=== PATIENT | female | born 1950 | race Caucasian/White ===

== ENCOUNTER 2018-09-24 12:22 | Inpatient (IN) | payer MEDICARE, OTHER ==
[~2018-09-24] VITALS: Ht 157.5 cm; Wt 60.3 kg
--- NOTE | 2018-09-24 12:50 | NUR ---
PT ALERT WITH ORIENTATION X 4 BROUGHT IN BY PARAMEDICS FOR NEAR SYNCOPY PT HAS 18 G PIV IN RIGHT AC FROM FIELD FLUSHED WELL WILL CONTINUE TO MONITOR
[2018-09-24] MEDS ORDERED: IV NS 0.9% 1,000 ML BAG IV ONE (13:00)
[2018-09-24 13:05] LABS: BASOPHILS # (AUTO) 0.1 /CMM (0.0-0.2); BASOPHILS % (AUTO) 0.9 % (0.0-2.0); EOSINOPHILS % (AUTO) 0.9 % (0.0-6.0); HEMATOCRIT 45 % (33-45); HEMOGLOBIN 14.9 g/dL (11.5-14.8); LYMPHOCYTES # (AUTO) 4.1 /CMM (0.8-4.8); LYMPHOCYTES % (AUTO) 41.7 % (20.0-44.0); MEAN CORPUSCULAR HGB CONC 33 g/dl (31.0-36.0); MEAN CORPUSCULAR VOLUME 91 fL (82-100); MONOCYTES # (AUTO) 0.8 /CMM (0.1-1.30); MONOCYTES % (AUTO) 7.7 % (2.0-12.0); NEUTROPHILS # (AUTO) 4.8 /CMM (1.8-8.9); NEUTROPHILS % (AUTO) 48.8 % (43.0-81.0); PLATELET COUNT (AUTO) 426 /CMM (150-450); WHITE BLOOD COUNT (AUTO) 9.8 K/uL (4.3-11.0)
[2018-09-24] MEDS ORDERED: OMEP20CA10 PO (13:11)
[2018-09-24] MEDS ORDERED: LINA145C PO (13:11)
[2018-09-24] MEDS ORDERED: GABA-534 PO (13:11)
[2018-09-24] MEDS ORDERED: ZOLM5TAB10 PO (13:11)
[2018-09-24] MEDS ORDERED: TETR12.52 PO (13:11)
[2018-09-24 13:19] LABS: CALCIUM, SERUM 8.7 mg/dL (8.5-10.1); CARBON DIOXIDE 28 mmol/L (21-32); CHLORIDE 105 mmol/L (98-107); CREATININE 0.7 mg/dL (0.6-1.3); GLUCOSE 111 mg/dL (74-106); SODIUM SERUM 141 mmol/L (136-145); UREA NITROGEN, BLOOD 16 mg/dL (7-18)
--- NOTE | 2018-09-24 14:56 | NUR ---
PT IS ASSIGNED TO [facility]#: [id number], DX: SYNCOPE, AND ACCEPTING: JEIMY HERNANDEZ NP.
--- NOTE | 2018-09-24 15:02 | NUR ---
UPDATE: ROOM CHANGE PT IS ASSIGNED TO TELE RM#: [id number]
[2018-09-24 16:00] VITALS: BP 157/86
--- NOTE | 2018-09-24 16:00 | NUR ---
RECEIVED PATIENT FROM ER VIA [facility]. PATIENT AMBULATORY, WALKED FROM [facility] TO THE BED WITH STANDBY ASSIST. A/OX4, ABLE TO MAKE NEEDS KNOWN. NO ACUTE DISTRESS, NO SOB. DENIED PAIN OR DISCOMFORT. TOLERATING ROOM AIR. IV ACCESS INTACT AND PATENT. SKIN ASSESSMENT DONE, PHOTOS TAKEN. ALL BELONGINGS CHECKED, FORM SIGNED. PLACED ON TELEMONITORING SR HR 96. NOTIFIED JEIMY HERNANDEZ NP FOR ADMITTING ORDERS. KEPT PATIENT SAFE AND COMFORTABLE. BED IN LOW/LOCKED POSITION, SIDERAILS UPX2, CALL LIGHT IN REACH, ORIENT PATIENT TO THE ROOM. WILL MONIOTR ACCORDINGLY.
[2018-09-24 17:00] VITALS: BP 157/86
--- NOTE | 2018-09-24 18:38 | NUR ---
RN CLOSING NOTES PATIENT IN STABLE CONDITION. ALL NEEDS ATTENDED AND PROVIDED. STILL WAITING FOR ADMITTING ORDERS FROM MD. KEPT PATIENT SAFE AND COMFORTABLE. BED IN LOW/LOCKED POSITION, SIDERAILS UPX2, SEMIFOWLERS, CALL LIGHT IN REACH. WILL ENDORSED TO NIGHT RN FOR JESU.
--- NOTE | 2018-09-24 19:30 | NUR ---
TELERN FULLY AWAKE, FAMILY AT BEDSIDE. DENIES ANY DISCOMFORTS OF THIS TIME. PENDING ADMITTING ORDERS. TO CONTINUE.
--- NOTE | 2018-09-24 19:53 | NUR ---
TELERClary HERNANDEZ AT BEDSIDE. TO CONTINUE.
[2018-09-24 20:00] VITALS: BP 157/85
[2018-09-24] MEDS ORDERED: Z GUARD REMEDY 2 OZ OINT TP PRN (20:00)
[2018-09-24] MEDS ORDERED: MAGNESIUM HYDROXIDE 30 ML UDC PO PRN (20:00)
[2018-09-24] MEDS ORDERED: MAG HYDROX/AL HYDROX/SIMETH 30 ML UDC PO PRN (20:00)
[2018-09-24] MEDS ORDERED: ACETAMINOPHEN 325 MG TABLET PO PRN (20:00)
--- NOTE | 2018-09-24 20:45 | NUR ---
TELERN VERBALIZES HEADACHE , NORCO 1 TAB PO ADMINISTERED.. ASSISTED TO RESTROOM VOIDED FREELY. BACK TO BED. REMINDED TO CALL STAFF FOR ANY ASSISTANCE OR FURTHER DISCOMFORT, SAFETY PRECAUTIONS EMPHASIZED.
[2018-09-24] MEDS: HYDROCODONE/APAP 5/325MG 1 EACH TABLET PO PRN (20:46)
[2018-09-25] VITALS: BP 130/70
[2018-09-25] MEDS: ZOLPIDEM TARTRATE 5 MG TABLET PO PRN ×2 (00:06→21:30)
[2018-09-25] MEDS: HYDROCODONE/APAP 5/325MG 1 EACH TABLET PO PRN ×3 (01:17→09:34)
--- NOTE | 2018-09-25 01:18 | NUR ---
TELERN STATED AMBIEN DID NOT HELP, SLEEPING ON/OFF. HEADACHE THIS TIME NORCO 1 TAB PO GIVEN.
[2018-09-25 04:00] VITALS: BP 145/85
--- NOTE | 2018-09-25 05:20 | NUR ---
norco given as ordered per pt's request for c/o h/a. will cont to monitor,
--- NOTE | 2018-09-25 07:00 | NUR ---
TELERN ALL NEEDS ATTENDED, CONTINUED MONITORING
[2018-09-25 07:20] LABS: BASOPHILS # (AUTO) 0.1 /CMM (0.0-0.2); BASOPHILS % (AUTO) 1.1 % (0.0-2.0); EOSINOPHILS % (AUTO) 1.7 % (0.0-6.0); HEMATOCRIT 44 % (33-45); HEMOGLOBIN 14.7 g/dL (11.5-14.8); LYMPHOCYTES # (AUTO) 2.9 /CMM (0.8-4.8); LYMPHOCYTES % (AUTO) 28.8 % (20.0-44.0); MEAN CORPUSCULAR HGB CONC 33 g/dl (31.0-36.0); MEAN CORPUSCULAR VOLUME 91 fL (82-100); MONOCYTES # (AUTO) 0.8 /CMM (0.1-1.30); MONOCYTES % (AUTO) 7.8 % (2.0-12.0); NEUTROPHILS # (AUTO) 6.2 /CMM (1.8-8.9); NEUTROPHILS % (AUTO) 60.6 % (43.0-81.0); PLATELET COUNT (AUTO) 452 /CMM (150-450); RED BLOOD CELL COUNT(AUTO) 4.87 MIL/uL (4.0-5.2); WHITE BLOOD COUNT (AUTO) 10.2 K/uL (4.3-11.0)
[2018-09-25 07:30] LABS: CREATININE 0.7 mg/dL (0.6-1.3); MAGNESIUM 1.8 mg/dL (1.8-2.4); PHOSPHORUS 3.9 mg/dL (2.5-4.9)
[2018-09-25] MEDS: ONDANSETRON HCL/PF 4 MG/2 ML VIAL IVP PRN ×3 (07:43→21:30)
[2018-09-25] MEDS: PANTOPRAZOLE 40 MG TABLET.DR PO SCH (07:43)
[2018-09-25 08:00] VITALS: BP 155/92
--- NOTE | 2018-09-25 08:00 | NUR ---
RN NOTES PATIENT IN BED RESTING ALERT, ORIENTED X3 NO SOB OR ACUTE DISTRESS NOTED. PATIENT COMPLAINS OF NAUSEA. ZOFRAN GIVEN. PATIENT WITH PERIPHERAL IV INTACT PATENT. BED IN LOW LOCKED POSITION. CALL LIGHT WITHIN REACH. WILL CONTINUE TO MONITOR.
[2018-09-25] MEDS: GABAPENTIN 300 MG CAPSULE PO SCH ×3 (08:54→16:30)
[2018-09-25] MEDS ORDERED: TETRABENAZINE 12.5 MG PO SCH (09:00)
[2018-09-25 10:25] LABS: THYROID STIMULATING HORMONE 1.811 uIU/mL (0.358-3.74)
[2018-09-25] MEDS: IV NS 0.9% 1,000 ML IV PRN ×2 (10:47→20:00)
--- NOTE | 2018-09-25 11:30 | NUR ---
RN NOTES PATIENT COMPLAINS OF MIGRAINE HEAD ACHE NORCO ADMINISTERED PATIENT REPORTS IT WAS EFFECTIVE FOR ONLY 30 MIN JEIMY HERNANDEZ MADE AWARE ORDERS OBTAINED FOR MORPHINE 4MG EVERY 4 HOURS NEEDED FOR SEVER PAIN. ORDERS NOTED AND CARRIED OUT.
--- NOTE | 2018-09-25 11:45 | NUR ---
RN NOTES PATIENTS SON BROUGHT ZOLMITRIPTAN 5MG FROM HOME AND ADMINISTERED ONE DOSE WITHOUT NOTIFYING ANYONE JEIMY HERNANDEZ MADE MADE AWARE PACK OF ZOLMITRIPTAN OBTAINED FROM PATIENT AND XENAZINE SENT TO PHARMACY. WILL CONTINUE TO MONITOR.
[2018-09-25 12:00] VITALS: BP 166/99
[2018-09-25] MEDS ORDERED: HYDROMORPHONE INJ 0.5 MG/0.5 ML SYRINGE IV PRN (12:00)
[2018-09-25] MEDS ORDERED: MORPHINE SULFATE INJ 4 MG/ML DISP.SYRIN IV PRN (12:00)
--- NOTE | 2018-09-25 12:00 | NUR ---
RN NOTES PATIENT NOTED NAUSEAS AND X1 EMESIS. WILL CONTINUE TO MONITOR.
[2018-09-25] MEDS: HYDROMORPHONE 1 MG/1 ML DISP.SYRIN IV PRN ×3 (12:08→21:30)
[2018-09-25 16:00] VITALS: BP 143/89
--- NOTE | 2018-09-25 19:00 | NUR ---
KNIT TUBING DYER NOTES PATIENT IN BED RESTING NO SOB OR ACUTE DISTRESS NOTED. PATIENT VERBALIZES HER PAIN WAS CONTROLLED. PATIENT REPORTS SHE STILL HAS HEAD ACHE 2/10 BUT WAS CONTROLLED WITH MEDICATION. PERIPHERAL IV INTACT PATENT. ALL DUE MEDIATIONS ADMINISTERED. ALL NEEDS MET. WILL ENDORSE TO PM SHIFT JESU.
[2018-09-25 20:00] VITALS: BP 145/89
--- NOTE | 2018-09-25 20:03 | NUR ---
RN MS OPENING NOTES RECEIVED PT IN BED, AWAKE ALERT AND ORIENTED, BREATHING EVEN AND UNLABORED, NO SOB OR CONGESTION. NO COMPLAINT OF PAIN OR DISCOMFORT AT THE TIME. IV ACCESS ON THE RIGHT AC #18 WITH NS 125ML/HR. URINE SAMPLE COLLECTED AND SENT TO LAB. BED IN LOWEST LOCKED POSITION CALL LIGHT WITHIN REACH AT ALL TIMES, WILL CONTINUE TO MONITOR
[2018-09-25 20:46] LABS: APPEARANCE,URINE CLEAR (CLEAR); BILIRUBIN,URINE NEGATIVE (NEGATIVE); BLOOD, URINE NEGATIVE Ery/uL (NEGATIVE); COLOR,URINE YELLOW (YELLOW); KETONES,URINE NEGATIVE (NEGATIVE); LEUKOCYTE ESTERASE ,URINE NEGATIVE (NEGATIVE); NITRITE, URINE NEGATIVE (NEGATIVE); PROTEIN,URINE NEGATIVE (NEGATIVE); UGLUCOSE NEGATIVE (NEGATIVE); UROBILINOGEN,URINE 0.2 EU/dL (0.2)
[2018-09-25] MEDS ORDERED: ZOLPIDEM TARTRATE 5 MG TABLET PO PRN (22:00)
[2018-09-26 00:12] VITALS: BP 140/84
[2018-09-26] MEDS: HYDROMORPHONE 1 MG/1 ML DISP.SYRIN IV PRN (01:57)
[2018-09-26] MEDS: ONDANSETRON HCL/PF 4 MG/2 ML VIAL IVP PRN ×2 (03:41→10:13)
[2018-09-26 04:00] VITALS: BP 139/81
[2018-09-26] MEDS: IV NS 0.9% 1,000 ML IV PRN (04:24)
[2018-09-26] MEDS: HYDROCODONE/APAP 5/325MG 1 EACH TABLET PO PRN ×3 (05:53→14:15)
--- NOTE | 2018-09-26 06:26 | NUR ---
SEO PROFESSIONAL CLOSING NOTES PT REMAINS IN BED, AWAKE, ALERT ORIENTED X4, BREATHING EVEN AND UNLABORED ON 2L NC SATING AT 95. NO COUGH OR CONGESTION, NO SOB, NO COMPLAINT OF PAIN OR DISCOMFORT AT THE TIME. IV ACCESS ON THE R AC #18G WITH NS @75ML/HR. BED IN LOWEST LOCKED POSITION, CALL LIGHT WITHIN REACH AT ALL TIMES, NO CHANGE IN CONDITION DURING SHIFT, WILL ENDORSE TO DAY NURSE FOR JESU.
--- NOTE | 2018-09-26 07:47 | NUR ---
drip box tender Opening Note Patient is currently asleep, resting in bed but easily arousable to name. Alert and oriented x 4, able to make needs known. On residential monitor, sinus rhythm at 96 bpm. No signs or symptoms of distress, shortness of breath noted and denies pain at this time. Respirations even and unlabored, saturating on 2 L/min via nasal cannula, saturating at 95%. Peripheral IV to the right AC 18 gauge, intact, patent and infusing NS at 75 ml/hr. Safety and Fall precautions in place: bed in lowest and locked position, side rails up x2, call light and personal possessions within reach. Patient updated on safety measures and current plan of care. Will continue to monitor and intervene as needed.
[2018-09-26 08:00] VITALS: BP 146/84
[2018-09-26] MEDS: LINACLOTIDE 145 MG PO SCH ×2 (08:00→08:30)
[2018-09-26] MEDS: PANTOPRAZOLE 40 MG TABLET.DR PO SCH (08:30)
[2018-09-26] MEDS: GABAPENTIN 300 MG CAPSULE PO SCH ×2 (08:30→14:15)
--- NOTE | 2018-09-26 15:00 | NUR ---
Patient's home medications retrieved from pharmacy in anticipation of discharge this afternoon. Will give to patient upon discharge.
--- NOTE | 2018-09-26 16:00 | NUR ---
novelty candy makercertified teacher assistant Note Patient escorted to [facility] with NICK Cote and family member, vital signs stable and ambulates with steady gait. Alert and oriented x 4, able to make needs known. No signs or symptoms of distress, shortness of breath noted and denies pain at this time. Respirations even and unlabored, saturating on room air. Peripheral IV to the right AC 18 gauge removed, catheter tip intact. No redness, swelling or bleeding of site noted. Patient refused skin assessment discharge photos to be taken; educated patient on risks and benefits for on-going skin assessment and patient still decline. Home medications given to patient, prescription given to patient as well. All due medications given. Personal belongings discharged with patient, verified and signed off by belongings form, form placed in chart and copy given to patient. Discharge instructions and Exitcare reviewed and given to patient, patient verbalized understanding and acknowledged via signature on discharge form; copy given to patient and one also placed in chart. Patient discharged with dianna Bland and left via private car.
[2018-09-26] MEDS ORDERED: ZOLPIDEM TARTRATE 10 MG TABLET PO PRN (22:00)
== END 2018-09-26 16:00 | disposition home or self-care (01) | DRG 74 ==
LOC: ER 12:25 → TELE 14:59
PROVIDERS: ADMIT Nurse Practitioner Acute Care; ATTEND Nurse Practitioner Acute Care
DX: G90.8 Other disorders of autonomic nervous system (principal); E86.0 Dehydration; G43.909 Migraine, unspecified, not intractable, without status migrainosus; F17.210 Nicotine dependence, cigarettes, uncomplicated; K21.9 Gastro-esophageal reflux disease without esophagitis; Z87.01 Personal history of pneumonia (recurrent); Z90.49 Acquired absence of other specified parts of digestive tract; Z90.81 Acquired absence of spleen; R25.9 Unspecified abnormal involuntary movements
CPT/HCPCS: 36415; 70450-TC; 71045-TC; 80048-TC; 80061-TC; 81000-TC; 83735-TC; 84100-TC; 84439-TC; 84443-TC; 84484-TC; 85025-TC; 85730-TC; 87081-TC; 93307-TC; 95819-TC; G0378; J1170; J2405; J7030